=== PATIENT | female | born 1940 ===

== ENCOUNTER 2018-07-18 19:32 | Observation (INO) | payer MEDICAID, OTHER ==
[2018-07-18] MEDS ORDERED: Iohexol 240 (50 ml) PO ONE (20:48)
[2018-07-18] MEDS ORDERED: Sodium Chloride 0.9% 1,000 ML IV STA (20:49)
[2018-07-18] MEDS ORDERED: Iohexol 240 (50 ml) ONE (21:05)
--- NOTE | 2018-07-18 21:31 | ED PDOC ---
HPI: Abdomen Time Seen by Provider: 07/18/18 20:18 Chief Complaint (Nursing): GI Problem Chief Complaint (Provider): GI Problem History Per: Patient, Sap Basis (Terry Galeas # [id number]) History/Exam Limitations: language barrier Onset/Duration Of Symptoms: Other (x1 week) Current Symptoms Are (Timing): Still Present Additional Complaint(s): Patient is a 78 y/o female with a PMHx of diabetes, hypertension, and anemia on iron who presents to the ED for evaluation of weakness for the past week. Patient states everyday she has been experiencing combinations of blood clots in her bright red stool and reports she has been having increasing difficulty passing stool. Patient also complains of abdominal pain. Patient denies fever, nausea, vomiting, chest pain, and shortness of breath. Of note, patient was diagnosed with Ovarian CA 20 years ago and "Lymph node" CA two years ago in [employer]. Patient is s/p 35 rounds of radiation, no chemotherapy. Patient claims her last radiation treatment was two years ago. PCP: None Past Medical History Reviewed: Historical Data, Nursing Documentation, Vital Signs Vital Signs: Last Vital Signs Temp 98.3 F 07/18/18 20:03 Pulse 68 07/18/18 20:03 Resp 20 07/18/18 20:03 BP 125/70 07/18/18 20:03 Pulse Ox 100 07/18/18 20:03 Primary Care Provider: FAMILY PROVIDER,NO - Medical History PMH: Anemia, Diabetes, HTN Other PMH: Ovarian CA and "Lymphnodes" CA - Surgical History Surgical History: No Surg Hx - Family History Family History: States: No Known Family Hx - Home Medications Home Medications: Ambulatory Orders Medication Instructions Recorded Non Formulary Medication 1 tab PO DAILY 07/19/18 [Non-Formulary Medication] Non Formulary Medication 1 tab PO DAILY 07/19/18 [Non-Formulary Medication] Non Formulary Medication 1 tab PO DAILY 07/19/18 [Non-Formulary Medication] - Allergies Allergies/Adverse Reactions: Allergies Allergy/AdvReac Type Severity Reaction Status Date / Time No Known Allergies Allergy Verified 07/18/18 20:03 Review of Systems ROS Statement: Except As Marked, All Systems Reviewed And Found Negative Constitutional: Positive for: Weakness. Negative for: Fever Cardiovascular: Negative for: Chest Pain Respiratory: Negative for: Shortness of Breath Gastrointestinal: Positive for: Abdominal Pain, Other (blood clots in bright red stool; increasing difficultly to pass stool ). Negative for: Nausea, Vomiting Physical Exam - Reviewed Nursing Documentation Reviewed: Yes Vital Signs Reviewed: Yes - Physical Exam Appears: Positive for: No Acute Distress Head Exam: Positive for: ATRAUMATIC, NORMAL INSPECTION, NORMOCEPHALIC Skin: Positive for: Normal Color (pale), Warm Eye Exam: Positive for: EOMI, Normal appearance, PERRL Neck: Positive for: Normal, Painless ROM, Supple Cardiovascular/Chest: Positive for: Regular Rate, Rhythm. Negative for: Murmur Respiratory: Positive for: Normal Breath Sounds. Negative for: Respiratory Distress Gastrointestinal/Abdominal: Positive for: Soft, Tenderness (minimally diffuse). Negative for: Guarding, Rebound Back: Positive for: Normal Inspection. Negative for: L CVA Tenderness, R CVA Tenderness Rectal: Positive for: Normal Exam (assisted with Nurse Mónica), Other (dark stool with dark red blood) Extremity: Positive for: Normal ROM. Negative for: Pedal Edema, Deformity Neurological/Psych: Positive for: Alert, Oriented (x3) - Laboratory Results Result Diagrams: 07/18/18 21:15 07/18/18 21:15 - ECG O2 Sat by Pulse Oximetry: 100 (RA) Pulse Ox Interpretation: Normal Medical Decision Making Medical Decision Making: Time: 2022 Impression: DDx includes but not limited to malignancy, variceal bleeding, peptic ulder disease, angiodysplasia, procttitis, lower GI bleed, or other not considered. Plan: Type and Screen CT Abd & Pelvis w/ IV Contrast EKG Bilirubin CMP Lipase CBC PTT Prothrombin Time Glucose, POC IV Fluids Omnipaque 50 ml PO Protonix Inj 80 mg IVP Blood culutre Occult Blood, Stool UA 153 EXAM: CT Abdomen and Pelvis with IV contrast CLINICAL HISTORY: HX of ovarian lymph node CA TECHNIQUE: Axial computed tomography images of the abdomen and pelvis with intravenous contrast. 363.71 mGy-cm CONTRAST: With; [id number] 90ML COMPARISON: None provided. FINDINGS: LUNG BASES: Minimal linear atelectasis or scarring in the lung bases. LIVER: Liver is enlarged measuring 24 cm transverse. GALLBLADDER AND BILE DUCTS: The gallbladder appears within normal limits. No radioopaque gallstones are seen. No biliary ductal dilatation is evident. PANCREAS: Unremarkable. SPLEEN: Unremarkable. ADRENAL GLANDS: Unremarkable. KIDNEYS, URETERS, AND BLADDER: The kidneys appear within normal limits. There is no hydronephrosis or hydroureter. No urinary calculi are seen. STOMACH AND BOWEL: There is circumferential rectal thickening appreciable near series 2, images 72- 84. This could represent mass, hemorrhoids, proctitis. Please correlate clinically and if indicated this could be further evaluated with colonoscopy. Questionable focal circumferential narrowing at the more proximal rectum near series 2, image 64. Question mass versus stricture versus focal contraction. Mild constipation more proximally in the colon. No bowel obstruction. There is a small fat containing ventral hernia at the lower abdomen and pelvis near series 2, image 76. Known vault bowel loops. APPENDIX: Normal appendix. PERITONEUM: No free fluid. No free air. LYMPH NODES: No lymphadenopathy is evident. REPRODUCTIVE: Unremarkable as visualized. VASCULATURE: Mild atherosclerotic calcification of the abdominal aorta and branches. BONES: Mild multilevel degenerative spine changes. IMPRESSION: 1. Minimal linear atelectasis or scarring in the lung bases. 2. Liver is enlarged measuring 24 cm transverse. 3. There is circumferential rectal thickening appreciable near series 2, images 72-84. This could represent mass, hemorrhoids, proctitis. Please correlate clinically and if indicated this could be further evaluated with colonoscopy. Questionable focal circumferential narrowing at the more proximal rectum near series 2, image 64. Question mass versus stricture versus focal contraction. 4. Mild constipation more proximally in the colon. 5. Normal appendix. 6. No bowel obstruction. 7. Mild atherosclerotic calcification of the abdominal aorta and branches. 8. There is a small fat containing ventral hernia at the lower abdomen and pelvis near series 2, image 76. Known vault bowel loops. 9. Mild multilevel degenerative spine changes. Electronically signed on July 19, 2018 1:53:08 AM EDT by: Walter Flores M.D., Certified by [facility], Diagnostic Radiology Case discussed with Dr. Robles who recommends transfusion at this time, will see patient on consult Dr. Mckee aware of patient, will admit to his service. Scribe Attestation: Documented by Nicko Duke, acting as a scribe for Danny Flores MD. Provider Scribe Attestation: All medical record entries made by the Scribe were at my direction and personally dictated by me. I have reviewed the chart and agree that the record accurately reflects my personal performance of the history, physical exam, medical decision making, and the department course for this patient. I have also personally directed, reviewed, and agree with the discharge instructions and disposition. Disposition - Clinical Impression Clinical Impression: GI bleed - Patient ED Disposition Is Patient to be Admitted: Yes Counseled Patient/Family Regarding: Studies Performed, Diagnosis - Disposition Disposition Time: 00:30 Condition: FAIR
[2018-07-18 21:41] LABS: BASO % 0.7 % (0.0-2.0); EOS # 0.1 K/uL (0.0-0.7); HEMOGLOBIN 7.4 g/dL (12.0-16.0); MEAN CELL VOLUME 90.7 fl (81.0-99.0); MEAN CORPUSCULAR HEMOGLOBIN 28.4 pg (27.0-31.0); MEAN CORPUSCULAR HGB CONC 31.3 g/dL (33.0-37.0); MEAN PLATELET VOLUME 7.9 fl (7.2-11.7); MONO # 0.5 K/uL (0.0-0.8); NEUT # 3.2 K/uL (1.8-7.0); NEUT % 65.3 % (50.0-75.0); RBC 2.6 Mil/uL (3.80-5.20); RED CELL DISTRIBUTION WIDTH 18.9 % (11.5-14.5); WHITE BLOOD COUNT 4.9 K/uL (4.8-10.8)
[2018-07-18 21:51] LABS: ALB/GLOB RATIO 1.2 (1.0-2.1); ALBUMIN 3.7 g/dL (3.5-5.0); BILIRUBIN,DIRECT 0.3 mg/ml (0.0-0.4); CALCIUM 9.1 mg/dL (8.4-10.2)
[2018-07-18 21:59] LABS: PROTHROMBIN TIME 11.9 Seconds (9.8-13.1)
[2018-07-18 22:02] LABS: PARTIAL THROMBOPLASTIN TIME 38.1 Seconds (25.6-37.1)
--- NOTE | 2018-07-18 23:44 | CP.PCM.HP ---
<Bi Agudelo - Last Filed: 07/19/18 03:23> History of Present Illness - History of Present Illness History of Present Illness: 78 yo F with pmhx of dm, htn, ovarian cancer (s/p CARRIE and radiation) presents with bloody stools. Pt states she has history of external hemorrhoids for about 1 year. She has progressively required a total of 5 blood transfusions. Last transfusion was 2 years ago. she report blood per rectum is only with bowel movements. Color varies from bright red to maroon and clots. She feels generalized weakness, dizziness. PMD: none soc: denies smoking, alcohol, illicit drugs; lives with daughter Surg: R foot; CARRIE meds: reconciled NKDA Fm hx: no hx of GI cancer Present on Admission - Present on Admission Any Indicators Present on Admission: Yes History of Uncontrolled Diabetes: Yes Review of Systems - Constitutional Constitutional: Fatigue, Malaise - Cardiovascular Cardiovascular: absent: Chest Pain - Respiratory Respiratory: absent: Cough, Dyspnea - Gastrointestinal Gastrointestinal: Abdominal Pain, Hematochezia. absent: Constipation, Diarrhea, Hematemesis, Nausea, Vomiting - Genitourinary Genitourinary: absent: Dysuria, Urinary Frequency Past Patient History - Past Social History Smoking Status: Never Smoked Alcohol: None Drugs: Denies Home Situation {Lives}: With Family - CARDIAC Hx Hypertension: Yes - ENDOCRINE/METABOLIC Hx Diabetes Mellitus Type 2: Yes - HEMATOLOGICAL/ONCOLOGICAL Hx Anemia: Yes Hx Cancer: Yes (ovarian) - GASTROINTESTINAL Hx Gastrointestinal Disorders: Yes Hx Ulcer: Yes - PSYCHIATRIC Hx Substance Use: No - SURGICAL HISTORY Hx Hysterectomy: Yes Meds Home Medications: Home Medication List Medication Instructions Recorded Confirmed Type Pantoprazole [Protonix EC Tab] 40 mg PO DAILY #30 ect 07/19/18 Rx Pantoprazole [Protonix Inj] 40 mg IVP BID vial 07/19/18 Rx metroNIDAZOLE [Flagyl] 500 mg PO TID 5 Days #15 tab 07/19/18 Rx Allergies/Adverse Reactions: Allergies Allergy/AdvReac Type Severity Reaction Status Date / Time No Known Allergies Allergy Verified 07/18/18 20:03 Physical Exam - Constitutional Appears: No Acute Distress - Eye Exam Eye Exam: EOMI - ENT Exam ENT Exam: Mucous Membranes Moist - Respiratory Exam Respiratory Exam: Clear to Auscultation Bilateral, NORMAL BREATHING PATTERN. absent: Wheezes - Cardiovascular Exam Cardiovascular Exam: REGULAR RHYTHM, +S1, +S2 - GI/Abdominal Exam GI & Abdominal Exam: Normal Bowel Sounds, Soft. absent: Tenderness - Extremities Exam Extremities exam: Negative for: calf tenderness - Back Exam Back exam: absent: CVA tenderness (L), CVA tenderness (R) - Neurological Exam Neurological exam: Alert, CN II-XII Intact, Oriented x3 - Psychiatric Exam Psychiatric exam: Normal Affect, Normal Mood - Skin Skin Exam: Pallor Results - Vital Signs Recent Vital Signs: Last Vital Signs Temp 98.4 F 07/18/18 23:33 Pulse 70 07/18/18 23:33 Resp 17 07/18/18 23:33 BP 103/56 L 07/18/18 23:33 Pulse Ox 96 07/18/18 23:33 - Labs Result Diagrams: 07/18/18 21:15 07/18/18 21:15 Labs: Laboratory Results - last 24 hr 07/18/18 07/18/18 07/18/18 20:23 20:51 21:15 WBC 4.9 RBC 2.60 L Hgb 7.4 L Hct 23.6 L MCV 90.7 MCH 28.4 MCHC 31.3 L RDW 18.9 H Plt Count 284 MPV 7.9 Neut % (Auto) 65.3 Lymph % (Auto) 20.0 Mcmullen % (Auto) 11.0 H Eos % (Auto) 3.0 Baso % (Auto) 0.7 Neut # (Auto) 3.2 Lymph # (Auto) 1.0 Mcmullen # (Auto) 0.5 Eos # (Auto) 0.1 Baso # (Auto) 0.0 PT INR APTT Sodium Potassium Chloride Carbon Dioxide Anion Gap BUN Creatinine Est GFR ( Amer) Est GFR (Non-Af Amer) POC Glucose (mg/dL) 72 Random Glucose Calcium Total Bilirubin Direct Bilirubin AST ALT Alkaline Phosphatase Total Protein Albumin Globulin Albumin/Globulin Ratio Lipase Blood Type A POSITIVE Antibody Screen Negative BBK History Checked No verified bt 07/18/18 07/18/18 21:15 21:15 WBC RBC Hgb Hct MCV MCH MCHC RDW Plt Count MPV Neut % (Auto) Lymph % (Auto) Mcmullen % (Auto) Eos % (Auto) Baso % (Auto) Neut # (Auto) Lymph # (Auto) Mcmullen # (Auto) Eos # (Auto) Baso # (Auto) PT 11.9 INR 1.0 APTT 38.1 H Sodium 139 Potassium 4.2 Chloride 101 Carbon Dioxide 30 Anion Gap 12 BUN 28 H Creatinine 1.2 Est GFR ( Amer) 53 Est GFR (Non-Af Amer) 44 POC Glucose (mg/dL) Random Glucose 76 Calcium 9.1 Total Bilirubin 0.3 Direct Bilirubin 0.3 AST 38 H ALT 29 Alkaline Phosphatase 63 Total Protein 6.8 Albumin 3.7 Globulin 3.1 Albumin/Globulin Ratio 1.2 Lipase 278 Blood Type Antibody Screen BBK History Checked Assessment & Plan - Assessment and Plan (Free Text) Assessment: 78 yo F with pmhx of dm, htn, ovarian cancer (s/p CARRIE and radiation) presents with bloody stools. Admitted for symptomatic anemia. Plan: CT A/P: pending official interpretation Symptomatic anemia GI bleed possibly from hemorrhoids ddx proctitis 2/2 radiation therapy h/h: 7.4/23.6 GI: Dr. Robles: recommends transfuse 1 unit; further recs appreciated occult blood positive NPO monitor vitals and for further acute gi bleed f/u labs DM accuchecks hypoglycemia protocol ICS low dose HTN hold antihypertensives; pt mild hypotension Pt was [place] ibesartan from [place]; may replace with losartan c/w monitoring vitals DVT Prophylaxis SCD due to acute bleed Case and Plan d/w Dr. Rafi Agudelo MD PGY-2 <Ankit Mckee - Last Filed: 07/19/18 12:06> Results - Vital Signs Recent Vital Signs: Last Vital Signs Temp 98.1 F 07/19/18 11:54 Pulse 73 07/19/18 11:54 Resp 20 07/19/18 11:54 BP 113/63 07/19/18 11:54 Pulse Ox 96 07/19/18 11:54 - Labs Result Diagrams: 07/19/18 10:45 07/19/18 10:45 Labs: Laboratory Results - last 24 hr 07/18/18 07/18/18 07/18/18 20:23 20:51 20:55 WBC RBC Hgb Hct MCV MCH MCHC RDW Plt Count MPV Neut % (Auto) Lymph % (Auto) Mcmullen % (Auto) Eos % (Auto) Baso % (Auto) Neut # (Auto) Lymph # (Auto) Mcmullen # (Auto) Eos # (Auto) Baso # (Auto) PT INR APTT Sodium Potassium Chloride Carbon Dioxide Anion Gap BUN Creatinine Est GFR ( Amer) Est GFR (Non-Af Amer) POC Glucose (mg/dL) 72 Random Glucose Calcium Total Bilirubin Direct Bilirubin AST ALT Alkaline Phosphatase Total Protein Albumin Globulin Albumin/Globulin Ratio Lipase Urine Color Urine Clarity Urine pH Ur Specific [place] Urine Protein Urine Glucose (UA) Urine Ketones Urine Blood Urine Nitrate Urine Bilirubin Urine Urobilinogen Ur Leukocyte Esterase Urine RBC (Auto) Urine Microscopic WBC Ur Squamous Epith Cells Stool Occult Blood Positive H Blood Type A POSITIVE Blood Type Confirm Antibody Screen Negative Crossmatch See Detail BBK History Checked No verified bt 07/18/18 07/18/18 07/18/18 21:15 21:15 21:15 WBC 4.9 RBC 2.60 L Hgb 7.4 L Hct 23.6 L MCV 90.7 MCH 28.4 MCHC 31.3 L RDW 18.9 H Plt Count 284 MPV 7.9 Neut % (Auto) 65.3 Lymph % (Auto) 20.0 Mcmullen % (Auto) 11.0 H Eos % (Auto) 3.0 Baso % (Auto) 0.7 Neut # (Auto) 3.2 Lymph # (Auto) 1.0 Mcmullen # (Auto) 0.5 Eos # (Auto) 0.1 Baso # (Auto) 0.0 PT 11.9 INR 1.0 APTT 38.1 H Sodium 139 Potassium 4.2 Chloride 101 Carbon Dioxide 30 Anion Gap 12 BUN 28 H Creatinine 1.2 Est GFR ( Amer) 53 Est GFR (Non-Af Amer) 44 POC Glucose (mg/dL) Random Glucose 76 Calcium 9.1 Total Bilirubin 0.3 Direct Bilirubin 0.3 AST 38 H ALT 29 Alkaline Phosphatase 63 Total Protein 6.8 Albumin 3.7 Globulin 3.1 Albumin/Globulin Ratio 1.2 Lipase 278 Urine Color Urine Clarity Urine pH Ur Specific [place] Urine Protein Urine Glucose (UA) Urine Ketones Urine Blood Urine Nitrate Urine Bilirubin Urine Urobilinogen Ur Leukocyte Esterase Urine RBC (Auto) Urine Microscopic WBC Ur Squamous Epith Cells Stool Occult Blood Blood Type Blood Type Confirm Antibody Screen Crossmatch BBK History Checked 07/18/18 07/18/18 07/19/18 22:15 23:17 06:20 WBC RBC Hgb Hct MCV MCH MCHC RDW Plt Count MPV Neut % (Auto) Lymph % (Auto) Mcmullen % (Auto) Eos % (Auto) Baso % (Auto) Neut # (Auto) Lymph # (Auto) Mcmullen # (Auto) Eos # (Auto) Baso # (Auto) PT INR APTT Sodium Potassium Chloride Carbon Dioxide Anion Gap BUN Creatinine Est GFR ( Amer) Est GFR (Non-Af Amer) POC Glucose (mg/dL) 100 Random Glucose Calcium Total Bilirubin Direct Bilirubin AST ALT Alkaline Phosphatase Total Protein Albumin Globulin Albumin/Globulin Ratio Lipase Urine Color Yellow Urine Clarity Slighty-cloudy Urine pH 7.0 Ur Specific [place] 1.012 Urine Protein Negative Urine Glucose (UA) Neg Urine Ketones Negative Urine Blood Negative Urine Nitrate Negative Urine Bilirubin Negative Urine Urobilinogen 0.2-1.0 Ur Leukocyte Esterase Trace Urine RBC (Auto) < 1 Urine Microscopic WBC 4 Ur Squamous Epith Cells < 1 Stool Occult Blood Blood Type Blood Type Confirm A POSITIVE Antibody Screen Crossmatch BBK History Checked 07/19/18 07/19/18 10:45 10:45 WBC 3.8 L RBC 2.98 L Hgb 8.6 L Hct 26.8 L MCV 89.8 MCH 28.8 MCHC 32.1 L RDW 18.0 H Plt Count 237 MPV Neut % (Auto) Lymph % (Auto) Mcmullen % (Auto) Eos % (Auto) Baso % (Auto) Neut # (Auto) Lymph # (Auto) Mcmullen # (Auto) Eos # (Auto) Baso # (Auto) PT INR APTT Sodium 137 Potassium 4.3 Chloride 106 Carbon Dioxide 23 Anion Gap 12 BUN 20 H Creatinine 1.1 Est GFR ( Amer) 58 Est GFR (Non-Af Amer) 48 POC Glucose (mg/dL) Random Glucose 186 H Calcium 8.3 L Total Bilirubin 1.5 H Direct Bilirubin AST 31 ALT 26 Alkaline Phosphatase 55 Total Protein 6.3 Albumin 3.3 L Globulin 3.0 Albumin/Globulin Ratio 1.1 Lipase Urine Color Urine Clarity Urine pH Ur Specific [place] Urine Protein Urine Glucose (UA) Urine Ketones Urine Blood Urine Nitrate Urine Bilirubin Urine Urobilinogen Ur Leukocyte Esterase Urine RBC (Auto) Urine Microscopic WBC Ur Squamous Epith Cells Stool Occult Blood Blood Type Blood Type Confirm Antibody Screen Crossmatch BBK History Checked Attending/Attestation - Attestation I have personally seen and examined this patient.: Yes I have fully participated in the care of the patient.: Yes I have reviewed all pertinent clinical information: Yes Notes (Text): 07/19/18 11:57 I saw, examined and discussed this patient with Dr Agudelo. I agree with the assessment and plan expressed above. This is a 78 years old female with hx of Ovarian and lymph node cancer treated n with surgery and radiotherapy. She has had myltip;e episodes of rectal bleeds where she received blood transfusion. She comes with Blood per rectum with generalized weakness and being tired with a hemoglobin of 7.[address] abdomen/Pelvis showing evidence of hemorrhoides of proctitis. She will be treated for symptomatic Blood loss anemia with Blood transfusion. We will consult with [facility]. Ankit Mckee MD
[2018-07-18 23:47] LABS: SQUAMOUS EPITHIAL < 1 /hpf (0-5); URINE BILIRUBIN NEGATIVE (NEGATIVE); URINE BLOOD NEGATIVE (NEGATIVE); URINE CLARITY SLIGHTY-CLOUDY (Clear); URINE COLOR YELLOW (YELLOW); URINE GLUCOSE (UA) NEG (NEGATIVE); URINE LEUKOCYTE ESTERASE TRACE Leu/uL (Negative); URINE PROTEIN NEGATIVE (NEGATIVE); URINE UROBILINOGEN 0.2-1.0 mg/dL (0.2-1.0)
[2018-07-19] MEDS ORDERED: Sodium Chloride 0.9% 100 ML IV ONE (00:15)
[2018-07-19] MEDS ORDERED: Iodixanol 320 MG/ML 100 ML BOTTLE IV ONE (00:15)
[2018-07-19] MEDS ORDERED: Dextrose 50% SYRINGE Inj (50 ml) IV PRN (03:24)
[2018-07-19] MEDS ORDERED: Glucagon Recombinant 1 mg Inj IM PRN (03:24)
[2018-07-19] MEDS: Potassium Ch 20mEq in D5-1/2NS 1,000 ML IV SCH ×2 (06:29→08:41)
[2018-07-19 07:52] VITALS: RESP 20
[2018-07-19] MEDS: Insulin Regular 100 units/ml SC SCH ×2 (08:40→11:55)
[2018-07-19] MEDS ORDERED: Pantoprazole 40 mg EC Tab PO SCH (09:00)
--- NOTE | 2018-07-19 09:31 | CT ---
Date of service: 07/19/2018 PROCEDURE: CT Abdomen and Pelvis with contrast HISTORY: hx of ovarian/lymph node CA p/w w/ rectal bleed COMPARISON: None. TECHNIQUE: Contrast dose: 90 cc of Visipaque 320 intravenously. Axial and reformatted coronal and sagittal CT images of the abdomen and pelvis were obtained after IV and oral contrast administration. Radiation dose: Total exam DLP = 363.71 mGy-cm. This CT exam was performed using one or more of the following dose reduction techniques: Automated exposure control, adjustment of the mA and/or kV according to patient size, and/or use of iterative reconstruction technique. FINDINGS: LOWER THORAX: No evidence of acute pathology. LIVER: Mild hepatomegaly is noted. No CT evidence of enhancing mass lesion. The portal vein is patent. GALLBLADDER AND BILE DUCTS: Unremarkable. PANCREAS: Unremarkable. No gross lesion or ductal dilatation. SPLEEN: Unremarkable. ADRENALS: Unremarkable. No mass. KIDNEYS AND URETERS: Unremarkable. No hydronephrosis. No solid mass. VASCULATURE: Unremarkable. No aortic aneurysm. No aortic atherosclerotic calcification or mural plaque present. BOWEL: There is circumferential rectal wall thickening noted. No evidence of high-grade bowel obstruction. Scattered colonic diverticulosis are noted without evidence of diverticulitis. Mild constipation is also noted. APPENDIX: No evidence of appendicitis. PERITONEUM: Unremarkable. No free fluid. No free air. LYMPH NODES: Unremarkable. No enlarged lymph nodes. BLADDER: Mild urinary bladder wall thickening. REPRODUCTIVE: The uterus is not visualized. There is 3.7 x 3.2 centimeter cystic lesion at the left ovary. The right ovary is not visualized BONES: No acute fracture. OTHER FINDINGS: Fat containing anterior lower abdominal wall ventral hernia is noted. IMPRESSION: Circumferential rectal wall thickening noted may represent proctitis versus neoplasm. Please correlate clinically. 3.7 centimeter cystic mass at the left adrenal gland. Further evaluation is recommended. Hepatomegaly. Mild constipation. Preliminary report was submitted by [facility] contains concordant findings.
--- NOTE | 2018-07-19 09:48 | CARD ---
APPROVED REPORT Date of service: 07/18/2018 EKG Measurement Heart [id number] <Conclusion> Normal sinus rhythm Normal ECG
[2018-07-19 11:01] LABS: HEMOGLOBIN 8.6 g/dL (12.0-16.0); MEAN CELL VOLUME 89.8 fl (81.0-99.0); MEAN CORPUSCULAR HEMOGLOBIN 28.8 pg (27.0-31.0); MEAN CORPUSCULAR HGB CONC 32.1 g/dL (33.0-37.0); RBC 2.98 Mil/uL (3.80-5.20); WHITE BLOOD COUNT 3.8 K/uL (4.8-10.8)
[2018-07-19 11:15] LABS: ALB/GLOB RATIO 1.1 (1.0-2.1); ALBUMIN 3.3 g/dL (3.5-5.0); CALCIUM 8.3 mg/dL (8.4-10.2)
--- NOTE | 2018-07-19 11:40 | CP.PCM.DIS ---
<Ashley Hilton - Last Filed: 07/19/18 13:38> Provider - Provider Date of Admission: 07/18/18 23:17 Attending physician: Ankit Mckee Primary care physician: will follow up with [facility] Consults: 07/18/18 23:18 Gastroenterology Consult Stat Comment: Consulting Provider: Swapnil Robles Consulting Physician: Swapnil Robles Reason for Consult: GIB Time Spent in preparation of Discharge (in minutes): 30 Diagnosis - Discharge Diagnosis (1) Acute anemia Status: Acute Comment: Secondary to GI bleed. possibly from hemorrhoids ddx proctitis 2/2 radiation therapy. h/h: 7.4/23.6 ; repeat H/H 8.6/26.8. occult blood positive Hospital Course - Lab Results Lab Results: Most Recent Lab Values WBC 3.8 K/uL (4.8-10.8) L 07/19/18 10:45 RBC 2.98 Mil/uL (3.80-5.20) L 07/19/18 10:45 Hgb 8.6 g/dL (12.0-16.0) L 07/19/18 10:45 Hct 26.8 % (34.0-47.0) L 07/19/18 10:45 MCV 89.8 fl (81.0-99.0) 07/19/18 10:45 MCH 28.8 pg (27.0-31.0) 07/19/18 10:45 MCHC 32.1 g/dL (33.0-37.0) L 07/19/18 10:45 RDW 18.0 % (11.5-14.5) H 07/19/18 10:45 Plt Count 237 K/uL (130-400) 07/19/18 10:45 MPV 7.9 fl (7.2-11.7) 07/18/18 21:15 Neut % (Auto) 65.3 % (50.0-75.0) 07/18/18 21:15 Lymph % (Auto) 20.0 % (20.0-40.0) 07/18/18 21:15 [place] % (Auto) 11.0 % (0.0-10.0) H 07/18/18 21:15 Eos % (Auto) 3.0 % (0.0-4.0) 07/18/18 21:15 Baso % (Auto) 0.7 % (0.0-2.0) 07/18/18 21:15 Neut # (Auto) 3.2 K/uL (1.8-7.0) 07/18/18 21:15 Lymph # (Auto) 1.0 K/uL (1.0-4.3) 07/18/18 21:15 [place] # (Auto) 0.5 K/uL (0.0-0.8) 07/18/18 21:15 Eos # (Auto) 0.1 K/uL (0.0-0.7) 07/18/18 21:15 Baso # (Auto) 0.0 K/uL (0.0-0.2) 07/18/18 21:15 PT 11.9 Seconds (9.8-13.1) 07/18/18 21:15 INR 1.0 07/18/18 21:15 APTT 38.1 Seconds (25.6-37.1) H 07/18/18 21:15 Sodium 137 mmol/l (132-148) 07/19/18 10:45 Potassium 4.3 MMOL/L (3.6-5.0) 07/19/18 10:45 Chloride 106 mmol/L (98-107) 07/19/18 10:45 Carbon Dioxide 23 mmol/L (22-30) 07/19/18 10:45 Anion Gap 12 (10-20) 07/19/18 10:45 BUN 20 mg/dl (7-17) H 07/19/18 10:45 Creatinine 1.1 mg/dl (0.7-1.2) 07/19/18 10:45 Est GFR ( Amer) 58 07/19/18 10:45 Est GFR (Non-Af Amer) 48 07/19/18 10:45 POC Glucose (mg/dL) 100 mg/dL (65-110) 07/19/18 06:20 Random Glucose 186 mg/dL (65-105) H 07/19/18 10:45 Calcium 8.3 mg/dL (8.4-10.2) L 07/19/18 10:45 Total Bilirubin 1.5 mg/dl (0.2-1.3) H 07/19/18 10:45 Direct Bilirubin 0.3 mg/ml (0.0-0.4) 07/18/18 21:15 AST 31 U/L (14-36) 07/19/18 10:45 ALT 26 U/L (9-52) 07/19/18 10:45 Alkaline Phosphatase 55 U/L (38-126) 07/19/18 10:45 Total Protein 6.3 G/DL (6.3-8.2) 07/19/18 10:45 Albumin 3.3 g/dL (3.5-5.0) L 07/19/18 10:45 Globulin 3.0 gm/dL (2.2-3.9) 07/19/18 10:45 Albumin/Globulin Ratio 1.1 (1.0-2.1) 07/19/18 10:45 Lipase 278 U/L (23-300) 07/18/18 21:15 Urine Color Yellow (YELLOW) 07/18/18 23:17 Urine Clarity Slighty-cloudy (Clear) 07/18/18 23:17 Urine pH 7.0 (5.0-8.0) 07/18/18 23:17 Ur Specific [place] 1.012 (1.003-1.030) 07/18/18 23:17 Urine Protein Negative mg/dL (NEGATIVE) 07/18/18 23:17 Urine Glucose (UA) Neg mg/dL (NEGATIVE) 07/18/18 23:17 Urine Ketones Negative mg/dL (NEGATIVE) 07/18/18 23:17 Urine Blood Negative (NEGATIVE) 07/18/18 23:17 Urine Nitrate Negative (NEGATIVE) 07/18/18 23:17 Urine Bilirubin Negative (NEGATIVE) 07/18/18 23:17 Urine Urobilinogen 0.2-1.0 mg/dL (0.2-1.0) 07/18/18 23:17 Ur Leukocyte Esterase Trace Luiz/uL (Negative) 07/18/18 23:17 Urine RBC (Auto) < 1 /hpf (0-3) 07/18/18 23:17 Urine Microscopic WBC 4 /hpf (0-5) 07/18/18 23:17 Ur Squamous Epith Cells < 1 /hpf (0-5) 07/18/18 23:17 Stool Occult Blood Positive (NEGATIVE) H 07/18/18 20:55 Blood Type A POSITIVE 07/18/18 20:51 Blood Type Confirm A POSITIVE 07/18/18 22:15 Antibody Screen Negative 07/18/18 20:51 Crossmatch See Detail 07/18/18 20:51 BBK History Checked No verified bt 07/18/18 20:51 - Hospital Course Hospital Course: 78 yo F with history of dm, htn, ovarian cancer (s/p CARRIE and radiation) presented with bloody stools. Had history of previous blood transfusions secondary to external hemorrhoids as per patient. Patient was found to have H/H 7.4/23.6. Last BM with blood was this morning, minor amount of bright red blood noted. GI was consulted. Patient recieved 1 unit of pRBC. Repeat H/H 8.6/26.8. Patient was noted to be hypotensive secondary to acute blood loss anemia per rectum. CT scan of A/P: circumferential rectal wall thickening noted may represent proctitis versus neoplasm and Cystic mass noted on left adrenal gland. Patient stable, no overnight events and no events noted on the tele monitor. Patient will follow up in [facility] July 25 @ 8:20am. Will follow up with GI outpatient. Discharge Exam - Head Exam Head Exam: ATRAUMATIC, NORMAL INSPECTION, NORMOCEPHALIC - Eye Exam Eye Exam: Normal appearance - ENT Exam ENT Exam: Mucous Membranes Moist - Respiratory Exam Respiratory Exam: Clear to PA & Lateral, NORMAL BREATHING PATTERN, UNREMARKABLE. absent: Accessory Muscle Use, Chest Wall Tenderness, Decreased Breath Sounds, Prolonged Expiratory Phase, Rales, Rhonchi, Wheezes, Respiratory Distress, Stridor - Cardiovascular Exam Cardiovascular Exam: +S1, +S2 - GI/Abdominal Exam GI & Abdominal Exam: Normal Bowel Sounds, Soft, Unremarkable. absent: Distended, Firm, Guarding, Rebound, Rigid, Tenderness - Extremities Exam Extremities exam: normal capillary refill, normal inspection, pedal pulses present - Neurological Exam Neurological exam: Alert, Oriented x3 - Psychiatric Exam Psychiatric exam: Normal Affect, Normal Mood - Skin Skin Exam: Dry, Intact, Normal Color, Warm Discharge Plan - Discharge Medications Prescriptions: metroNIDAZOLE [Flagyl] 500 mg PO TID 5 Days #15 tab Pantoprazole [Protonix EC Tab] 40 mg PO DAILY #30 ect - Follow Up Plan Condition: GOOD Disposition: HOME/ ROUTINE Patient education suggested?: Yes Instructions: Gastrointestinal Bleeding (DC) Additional Instructions: Appointment with Dr. Reynoso at [facility] 07/25/18 @ 8:20 am Further GI work up as outpt ff up with own Oncologist uriel Referrals: [facility] [Outside] Swapnil Robles MD, PhD [Staff Provider] - <Sheela Webster - Last Filed: 07/19/18 17:26> Provider - Provider Date of Admission: 07/18/18 23:17 Attending physician: Ankit Mckee Consults: 07/18/18 23:18 Gastroenterology Consult Stat Comment: Consulting Provider: Swapnil Robles Consulting Physician: Swapnil Robles Reason for Consult: [facility] Hospital Course - Lab Results Lab Results: Most Recent Lab Values WBC 3.8 K/uL (4.8-10.8) L 07/19/18 10:45 RBC 2.98 Mil/uL (3.80-5.20) L 07/19/18 10:45 Hgb 8.6 g/dL (12.0-16.0) L 07/19/18 10:45 Hct 26.8 % (34.0-47.0) L 07/19/18 10:45 MCV 89.8 fl (81.0-99.0) 07/19/18 10:45 MCH 28.8 pg (27.0-31.0) 07/19/18 10:45 MCHC 32.1 g/dL (33.0-37.0) L 07/19/18 10:45 RDW 18.0 % (11.5-14.5) H 07/19/18 10:45 Plt Count 237 K/uL (130-400) 07/19/18 10:45 MPV 7.9 fl (7.2-11.7) 07/18/18 21:15 Neut % (Auto) 65.3 % (50.0-75.0) 07/18/18 21:15 Lymph % (Auto) 20.0 % (20.0-40.0) 07/18/18 21:15 [place] % (Auto) 11.0 % (0.0-10.0) H 07/18/18 21:15 Eos % (Auto) 3.0 % (0.0-4.0) 07/18/18 21:15 Baso % (Auto) 0.7 % (0.0-2.0) 07/18/18 21:15 Neut # (Auto) 3.2 K/uL (1.8-7.0) 07/18/18 21:15 Lymph # (Auto) 1.0 K/uL (1.0-4.3) 07/18/18 21:15 [place] # (Auto) 0.5 K/uL (0.0-0.8) 07/18/18 21:15 Eos # (Auto) 0.1 K/uL (0.0-0.7) 07/18/18 21:15 Baso # (Auto) 0.0 K/uL (0.0-0.2) 07/18/18 21:15 PT 11.9 Seconds (9.8-13.1) 07/18/18 21:15 INR 1.0 07/18/18 21:15 APTT 38.1 Seconds (25.6-37.1) H 07/18/18 21:15 Sodium 137 mmol/l (132-148) 07/19/18 10:45 Potassium 4.3 MMOL/L (3.6-5.0) 07/19/18 10:45 Chloride 106 mmol/L (98-107) 07/19/18 10:45 Carbon Dioxide 23 mmol/L (22-30) 07/19/18 10:45 Anion Gap 12 (10-20) 07/19/18 10:45 BUN 20 mg/dl (7-17) H 07/19/18 10:45 Creatinine 1.1 mg/dl (0.7-1.2) 07/19/18 10:45 Est GFR ( Amer) 58 07/19/18 10:45 Est GFR (Non-Af Amer) 48 07/19/18 10:45 POC Glucose (mg/dL) 221 mg/dL (65-110) H 07/19/18 10:53 Random Glucose 186 mg/dL (65-105) H 07/19/18 10:45 Calcium 8.3 mg/dL (8.4-10.2) L 07/19/18 10:45 Total Bilirubin 1.5 mg/dl (0.2-1.3) H 07/19/18 10:45 Direct Bilirubin 0.3 mg/ml (0.0-0.4) 07/18/18 21:15 AST 31 U/L (14-36) 07/19/18 10:45 ALT 26 U/L (9-52) 07/19/18 10:45 Alkaline Phosphatase 55 U/L (38-126) 07/19/18 10:45 Total Protein 6.3 G/DL (6.3-8.2) 07/19/18 10:45 Albumin 3.3 g/dL (3.5-5.0) L 07/19/18 10:45 Globulin 3.0 gm/dL (2.2-3.9) 07/19/18 10:45 Albumin/Globulin Ratio 1.1 (1.0-2.1) 07/19/18 10:45 Lipase 278 U/L (23-300) 07/18/18 21:15 Urine Color Yellow (YELLOW) 07/18/18 23:17 Urine Clarity Slighty-cloudy (Clear) 07/18/18 23:17 Urine pH 7.0 (5.0-8.0) 07/18/18 23:17 Ur Specific [place] 1.012 (1.003-1.030) 07/18/18 23:17 Urine Protein Negative mg/dL (NEGATIVE) 07/18/18 23:17 Urine Glucose (UA) Neg mg/dL (NEGATIVE) 07/18/18 23:17 Urine Ketones Negative mg/dL (NEGATIVE) 07/18/18 23:17 Urine Blood Negative (NEGATIVE) 07/18/18 23:17 Urine Nitrate Negative (NEGATIVE) 07/18/18 23:17 Urine Bilirubin Negative (NEGATIVE) 07/18/18 23:17 Urine Urobilinogen 0.2-1.0 mg/dL (0.2-1.0) 07/18/18 23:17 Ur Leukocyte Esterase Trace Luiz/uL (Negative) 07/18/18 23:17 Urine RBC (Auto) < 1 /hpf (0-3) 07/18/18 23:17 Urine Microscopic WBC 4 /hpf (0-5) 07/18/18 23:17 Ur Squamous Epith Cells < 1 /hpf (0-5) 07/18/18 23:17 Stool Occult Blood Positive (NEGATIVE) H 07/18/18 20:55 Blood Type A POSITIVE 07/18/18 20:51 Blood Type Confirm A POSITIVE 07/18/18 22:15 Antibody Screen Negative 07/18/18 20:51 Crossmatch See Detail 07/18/18 20:51 BBK History Checked No verified bt 07/18/18 20:51 Attending/Attestation - Attestation I have personally seen and examined this patient.: Yes I have fully participated in the care of the patient.: Yes I have reviewed all pertinent clinical information, including history, physical exam and plan: Yes Notes (Text): Diagnoses: 1. Acute Blood Loss Anemia, on Chronic Anemia 2. Proctitis prob Radiation 3. Enlarged Adrenal Gland 4. History of Ovarian cancer s/p recent Radiation therapy in June 08. DM type II - Pt was transfused with 1 units PRBC - VS stable - no further GI bleed while in the hospital -started Flagyl 500mg tid , will continue - cont PPI - GI consulted- Dr Robles rec work up as outpt and cleared pt for d/c -discussed with pt need to ff up with her Oncologist uriel - d/c anti hypertensives
[2018-07-19 11:54] VITALS: BP 113/63; PULSE 73; TEMP 98.1; O2SAT 96
== END 2018-07-19 14:40 | disposition home or self-care (01) ==
LOC: H.ER 19:32 → INTOOBSV 23:17 → H.ERHOLD 23:17 → H.TEL 07-19 01:06
PROVIDERS: ADMIT Internal Medicine; ATTEND Internal Medicine
DX: D62 Acute posthemorrhagic anemia (principal); E11.9 Type 2 diabetes mellitus without complications; I10 Essential (primary) hypertension; Z85.43 Personal history of malignant neoplasm of ovary; Z92.3 Personal history of irradiation; K62.89 Other specified diseases of anus and rectum; E27.8 Other specified disorders of adrenal gland
CPT/HCPCS: 36415; 36430; 74177; 80053; 81003; 82248; 82948; 83690; 85025; 85027; 85610; 85730; 86850; 86900; 86920; 87040; 93005; 96361; 96374; 96376; 99284; C9113; G0328; G0378; J7030; P9051; Q9966; Q9967

== ENCOUNTER 2018-07-31 16:10 | Emergency (ER) | payer SELFPAY ==
[2018-07-31 18:31] VITALS: RESP 16
[2018-07-31] MEDS ORDERED: Iohexol 240 (50 ml) PO ONE (18:55)
[2018-07-31] MEDS ORDERED: Sodium Chloride 0.9% 1,000 ML IV STA (18:58)
--- NOTE | 2018-07-31 19:05 | ED PDOC ---
HPI: Abdomen Time Seen by Provider: 07/31/18 18:34 Chief Complaint (Nursing): GI Problem Chief Complaint (Provider): abd pain weakness BRBPR History Per: Patient, Director Pharmacology (Evie from [employer]) History/Exam Limitations: no limitations Severity: Moderate Location Of Pain/Discomfort: Diffuse Quality Of Discomfort: Cramping Associated Symptoms: Nausea, Vomiting, Diarrhea, Loss Of Appetite Exacerbating Factors: None Alleviating Factors: None Additional Complaint(s): 78yo female c/o abd pain, nausea,diarrhea with bright blood per rectum. Recently started on iron and colace from [facility]. Daughter states has occassional diarrhea due to prior pelvic radiation from [facility] malignancy prior, but last radiation 3 yrs ago. Daughter also states patient appears pale. Past Medical History Reviewed: Historical Data, Nursing Documentation, Vital Signs Vital Signs: Last Vital Signs Temp 98.4 F 07/31/18 18:30 Pulse 72 07/31/18 18:30 Resp 16 07/31/18 18:30 BP 126/62 07/31/18 18:30 Pulse Ox 99 07/31/18 18:30 Primary Care Provider: Kika Reynoso - Medical History PMH: Anemia, Diabetes, HTN Denies: HIV - Surgical History Other surgeries: hysterectomy - Family History Family History: States: Unknown Family Hx - Living Arrangements Living Arrangements: With Family - Home Medications Home Medications: Ambulatory Orders Medication Instructions Recorded Non Formulary Medication 1 tab PO DAILY 07/19/18 [Non-Formulary Medication] Non Formulary Medication 1 tab PO DAILY 07/19/18 [Non-Formulary Medication] Pantoprazole [Protonix EC Tab] 40 mg PO DAILY #30 ect 07/19/18 Pantoprazole [Protonix Inj] 40 mg IVP BID vial 07/19/18 metroNIDAZOLE [Flagyl] 500 mg PO TID 5 Days #15 tab 07/19/18 Dicyclomine [Bentyl] 20 mg PO Q12 PRN #20 tab 08/01/18 - Allergies Allergies/Adverse Reactions: Allergies Allergy/AdvReac Type Severity Reaction Status Date / Time No Known Allergies Allergy Verified 07/31/18 18:27 Review of Systems Constitutional: Positive for: Chills, Weakness, Malaise Eyes: Negative for: Vision Change ENT: Negative for: Throat Pain Cardiovascular: Negative for: Chest Pain Respiratory: Positive for: Shortness of Breath Gastrointestinal: Positive for: Nausea, Abdominal Pain, Diarrhea, Hematochezia. Negative for: Hematemesis Genitourinary Female: Negative for: Dysuria, Frequency Musculoskeletal: Negative for: Neck Pain, Shoulder Pain, Back Pain Skin: Negative for: Rash, Lesions, Jaundice Neurological: Positive for: Dizziness. Negative for: Weakness, Numbness, Incoordination Physical Exam - Physical Exam Appears: Positive for: Uncomfortable Head Exam: Positive for: ATRAUMATIC, NORMAL INSPECTION, NORMOCEPHALIC Skin: Positive for: Warm, Pallor Eye Exam: Positive for: EOMI, Normal appearance, PERRL ENT: Positive for: Normal ENT Inspection Neck: Positive for: Normal, Painless ROM Cardiovascular/Chest: Positive for: Regular Rate, Rhythm Respiratory: Positive for: Normal Breath Sounds Gastrointestinal/Abdominal: Positive for: Soft, Tenderness (diffuse), Distended Back: Positive for: Normal Inspection Extremity: Positive for: Normal ROM. Negative for: Swelling Neurological/Psych: Positive for: Awake, Alert, Normal Tone. Negative for: Lethargic, Motor/Sensory Deficits - Laboratory Results Result Diagrams: 07/31/18 20:14 07/31/18 20:14 - ECG O2 Sat by Pulse Oximetry: 99 Medical Decision Making Medical Decision Making: workup for abd pain w gross blood per rectum initiated labs, T&S, IVF ordered Disposition - Clinical Impression Clinical Impression: Abdominal pain, Enteritis - Patient ED Disposition Is Patient to be Admitted: Transfer of Care - Disposition Referrals: [facility] [Outside] Osman Baldwin MD [Medical Doctor] - Disposition: Transfer of Care Disposition Time: 19:07 Condition: FAIR Prescriptions: Dicyclomine [Bentyl] 20 mg PO Q12 PRN #20 tab PRN Reason: abdominal pain/diarrhea Instructions: Viral Gastroenteritis, Bloody Stools Forms: [employer] (Faroese) Print Language: ALBANIAN Patient Signed Over To: Joel Bolton Handoff Comments: pending workup and dispo
[2018-07-31] MEDS ORDERED: Iohexol 240 (50 ml) ONE (19:54)
--- NOTE | 2018-07-31 19:55 | ED PDOC ---
- Laboratory Results Result Diagrams: 07/31/18 20:14 07/31/18 20:14 - ECG O2 Sat by Pulse Oximetry: 99 (RA) Pulse Ox Interpretation: Normal Medical Decision Making Medical Decision Makin:00 Patient signed out to this provider by Dr. Clayton pending labs, CT and re- evaluation. 23:43 FINDINGS: LUNG BASES: Visualized lung bases are clear. LIVER: No focal liver lesions. GALLBLADDER AND BILE DUCTS: Gallbladder is predominantly decompressed and otherwise unremarkable. PANCREAS: Unremarkable. SPLEEN: Unremarkable. ADRENAL GLANDS: Unremarkable. KIDNEYS, URETERS, AND BLADDER: There are a few tiny subcentimeter hypodensities within the pancreas which are too small to adequately characterize. In retrospect these are also appreciable on the July 19, 2018 study and appear little changed. No hydronephrosis of either kidney. STOMACH AND BOWEL: Question mild thickening of the distal stomach versus underdistention. This appears slightly more prominent currently than on the prior study. If a true finding, this could represent gastritis, less likely mass. Please correlate clinically and if indicated this could be further evaluated with upper GI or upper endoscopy. There is again suggestion of rectal wall thickening at the distal rectum for example near series 2, image 80. Differential considerations are unchanged from the prior study of July 19. There is also again a question of focal narrowing and/or wall thickening slightly more proximally within the proximal rectum and distal sigmoid. This could represent proctocolitis or mass. Consider colonoscopy if this has not been recently performed. Please correlate with any recent workup if this was performed. Question focal narrowing versus focal contraction at the distal ileum for example near series 2, image 57. Please correlate clinically and if indicated t his could be further evaluated with small bowel series. APPENDIX: No evidence of acute appendicitis on CT examination. PERITONEUM: No free fluid. No free air. LYMPH NODES: No lymphadenopathy is evident. REPRODUCTIVE: Unremarkable as visualized. VASCULATURE: Abdominal aorta and branch is demonstrate mild 2 moderate atherosclerotic calcification. BONES: Moderate multilevel degenerative spine changes again noted. MISCELLANEOUS: Little change in the fat containing ventral hernia at the lower midline abdominal wall. IMPRESSION: 1. Question mild thickening of the distal stomach versus underdistention. This appears slightly more prominent currently than on the prior study. If a true finding, this could represent gastritis, less likely mass. Please correlate clinically and if indicated this could be further evaluated with upper GI or upper endoscopy. 2. There is again suggestion of rectal wall thickening at the distal rectum for example near series 2, image 80. Differential considerations are unchanged from the prior study of July 19. There is also again a question of focal narrowing and/or wall thickening slightly more proximally within the proximal rectum and distal sigmoid. This could represent proctocolitis or mass. Consider colonoscopy if this has not been recently performed. Please correlate with any recent workup if this was performed. 3. Question focal narrowing versus focal contraction at the distal ileum for example near series 2, image 57. Please correlate clinically and if indicated this could be further evaluated with small bowel series. 4. Additional, incidental findings as described above. 00:30 Labs reviewed, hemoglobin stable, no clinical abnormalities Upon reevaluation, patient reports intermittent diarrhea, constipation, stopped using stool softener she was formerly on, does report that she was supposed to follow up with GI specialist but due to not having any insurance and having to self-pay, she was unable to see specialist Patient is stable for discharge home, on the condition that she follow up with clinic and GI referral, admitting resident Humberto made arrangement for rapid follow up in clinic, Dr. Baldwin is GI physician at [facility]; (referral provided) Return precautions provided to patient Scribe Attestation: Documented by Negin Eugene, acting as a scribe for Joel Bolton MD Provider Scribe Attestation: All medical record entries made by the Scribe were at my direction and personally dictated by me. I have reviewed the chart and agree that the record accurately reflects my personal performance of the history, physical exam, medical decision making, and the department course for this patient. I have also personally directed, reviewed, and agree with the discharge instructions and disposition. Disposition - Clinical Impression Clinical Impression: Abdominal pain, Enteritis - POA Present On Arrival: None - Disposition Referrals: [facility] [Outside] Osman Baldwin MD [Medical Doctor] - Disposition: Routine/Home Disposition Time: 00:30 Condition: FAIR Prescriptions: Dicyclomine [Bentyl] 20 mg PO Q12 PRN #20 tab PRN Reason: abdominal pain/diarrhea Instructions: Viral Gastroenteritis, Bloody Stools Forms: [employer] (Czech) Print Language: TURKISH
[2018-07-31 20:20] LABS: BASO % 0.4 % (0.0-2.0); EOS # 0.2 K/uL (0.0-0.7); EOS % 4.3 % (0.0-4.0); HEMOGLOBIN 8.9 g/dL (12.0-16.0); LYMPH # 0.7 K/uL (1.0-4.3); LYMPH % 15.7 % (20.0-40.0); MEAN CELL VOLUME 88.4 fl (81.0-99.0); MEAN CORPUSCULAR HEMOGLOBIN 28.6 pg (27.0-31.0); MEAN CORPUSCULAR HGB CONC 32.4 g/dL (33.0-37.0); MONO # 0.4 K/uL (0.0-0.8); MONO % 9.8 % (0.0-10.0); NEUT # 3.1 K/uL (1.8-7.0); NEUT % 69.8 % (50.0-75.0); RBC 3.1 Mil/uL (3.80-5.20); RED CELL DISTRIBUTION WIDTH 16.2 % (11.5-14.5); WHITE BLOOD COUNT 4.5 K/uL (4.8-10.8)
[2018-07-31 20:30] LABS: ALB/GLOB RATIO 1.1 (1.0-2.1); ALBUMIN 3.5 g/dL (3.5-5.0); ALT/SGPT 30 U/L (9-52); AST/SGOT 39 U/L (14-36); BLOOD UREA NITROGEN 20 mg/dl (7-17); CALCIUM 8.5 mg/dL (8.4-10.2); GFR NON-AFRICAN AMERICAN 54; LIPASE 110 U/L (23-300)
[2018-07-31] MEDS ORDERED: Iohexol 300 100 ML IJ ONE (21:49)
[2018-07-31] MEDS ORDERED: Sodium Chloride 0.9% 50 ML IV ONE (21:49)
[2018-07-31] MEDS ORDERED: guaiFENesin 200 mg/10 ml Syrup UD PO PRN (22:54)
[2018-08-01] MEDS ORDERED: guaiFENesin 200 mg/10 ml Syrup UD ONE
[2018-08-01 00:56] VITALS: BP 132/56; PULSE 77; TEMP 98
--- NOTE | 2018-08-01 13:48 | CT ---
Date of service: 07/31/2018 PROCEDURE: CT Abdomen and Pelvis with contrast HISTORY: abdominal pain bloody stools hx pelvic malignancy COMPARISON: 07/19/2018 TECHNIQUE: Contrast dose: 95 mL of Omnipaque 300 Radiation dose: Total exam DLP = 664.74 mGy-cm. This CT exam was performed using one or more of the following dose reduction techniques: Automated exposure control, adjustment of the mA and/or kV according to patient size, and/or use of iterative reconstruction technique. FINDINGS: LOWER THORAX: Unremarkable. LIVER: Mild hepatic diffuse steatosis suspect. Unchanged. No gross lesion or ductal dilatation. GALLBLADDER AND BILE DUCTS: Unremarkable. PANCREAS: A 1 to 2 mm hypodensity in the pancreatic body tail junction overseas current axial series 2, image 29 noted. This is unchanged with prior axial series 2, image 30 no ductal dilatation. Nonspecific. Appearance compatible with tiny cyst-consider rechecking CT in 6 to 12 months. The pancreatic head appearance appears probably top-normal in size its contour slightly more rounded compared to prior 07/19/2018 study-slight differences in axial plane imaging can result in this. This can also be reassessed with follow-up image pancreatic body are 2 closely approximating 2 mm hypodensities overseas current axial series 2, image 28 that are probably present albeit slightly conspicuous on the prior study due to slight differences in level of imaging currently this is also noted on axial series 3, image 55. This also can be reassessed on short-term follow-up CT imaging. A few peripancreatic densities are present short axis 6 mm probably present and similar with prior study overseas axis series 3, image 40 prior study with current axial series 3, image 48. SPLEEN: With IV contrast enhancement. Unremarkable. ADRENALS: Unremarkable. No mass. KIDNEYS AND URETERS: No hydronephrosis seen. The sub cm hyperdensity in the lower pole left kidney approaches current axial series 3, image 87 is similar to prior axial series 2, image 45 VASCULATURE: Probable tiny phleboliths in the pelvis is noted unchanged. The coarser hemipelvic phlebolith is also present near vaginal fornices on the right. No aortic aneurysm. No aortic atherosclerotic calcification or mural plaque present. BOWEL: The rectum again shows abnormal appearing mural thickening with fine serrated margins neoplastic changes here are suspect. The bulk in this circumferential mural thickening of the rectum has increased since the prior exam.. APPENDIX: Not identified with certainty. PERITONEUM: No free air. Small amount of left missy pelvic free fluid present LYMPH NODES: Unremarkable. No enlarged lymph nodes. BLADDER: Unremarkable. REPRODUCTIVE: No normal appearing uterus seen. Small amount of free fluid in the left cul-de-sac is present this appears slightly increased since prior exam. In the left adnexa there is a hypodensity without identifiable peripheral follicles measuring 3.5 x 2.4 cm punctate hyperdensities which may well represent the postsurgical changes. These findings border redundant rectosigmoid colon with some circumferential thickening of this redundant rectosigmoid colon loop. This appearance is not dissimilar. This left missy adnexal hypodensity may represent a a similarly sized large lymphocele. The right ovary is not identified. BONES: Inferior lumbar facet hypertrophic arthrosis bilateral OTHER FINDINGS: At only containing ventral lower abdominal hernia. No bowel containing hernia seen. Appearance is similar coronary artery calcifications noted. IMPRESSION: Interval increased rectal circumferential mural thickening with interval fine serrated margins-neoplastic etiology suspect. Additional areas of mural thickening in an area of redundant rectosigmoid colon-slightly increased in conspicuity; another segment of neoplastic and/or inflammatory changes here needed be considered. An incompletely distended bowel loops here here folded upon itself is another consideration. No high-grade obstruction seen. If not already had, GI consult recommended. Probable mild hepatic steatosis. Tiny-1 to 3 mm like pancreatic hypodensities nonspecific-no significant change with the 07/19/2018 study. Follow-up CT abdomen pancreatic study in 6 months to reassess is recommended. Few peripancreatic noted density similar as referenced above. Superior mesenteric vein and artery appear patent. Surrounding peripancreatic fat grossly unremarkable. Slight increased rounded an prominence to the pancreatic head-could well be technical-this areas also recommended for rechecking in [address] of the abdomen-pancreas and IV contrast enhancement No change with 07/19/2018 regarding the sub cm left posterior renal parenchymal hypodensity too small to accurately characterize. Again this can be hree assessed for stability in 6 months. The and attempted renal ultrasound for characterization is an option. Its small size may make optimal characterisation problematic. Left adnexal hypodensity without identifiable ovarian follicles-a left adnexal lymphocele is 1 consideration. The uterus and right ovary are not identified with certainty. 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 Some postop changes here are a consideration. No change with the only available recent CT study apparent Nonvisualized/appreciated appendix no pericecal inflammatory changes to suggest acute appendicitis. Other findings as above.
[2018-08-01 21:17] VITALS: O2SAT 99
== END 2018-08-01 01:00 | disposition home or self-care (01) ==
LOC: H.ER 16:10
DX: R10.9 Unspecified abdominal pain (principal); K52.9 Noninfective gastroenteritis and colitis, unspecified; E11.9 Type 2 diabetes mellitus without complications; I10 Essential (primary) hypertension; K59.00 Constipation, unspecified
CPT/HCPCS: 74177; 80053; 82948; 83690; 83735; 84100; 85025; 86850; 86900; 99285; J7030; Q9966; Q9967